=== PATIENT | female | born 1990 ===

== ENCOUNTER 2017-11-04 05:54 | Inpatient (IN) | payer OTHER ==
[~2017-11-04] VITALS: Ht 157.5 cm; Wt 57.6 kg
[2017-11-04] MEDS ORDERED: PRENATAL + DHA1 EAC1 PO (11:16)
[2017-11-07] MEDS ORDERED: CODE1TAB37 PO (09:08)
[2017-11-07] MEDS ORDERED: NAPR500T14 PO (09:08)
== END 2017-11-07 13:27 | disposition home or self-care (01) | DRG 766 ==
LOC: O/R 05:54 → OB/GYN 05:54 → LDR 05:54 → O/R 11:59 → OB/GYN 14:10
PROVIDERS: Obstetrics & Gynecology
PROC: 4A1HXCZ Monitoring of Products of Conception, Cardiac Rate, External Approach (ICD-10-PCS; 2017-11-04)
PROC: 4A033R1 Measurement of Arterial Saturation, Peripheral, Percutaneous Approach (ICD-10-PCS; 2017-11-04)
PROC: 10D00Z1 Extraction of Products of Conception, Low, Open Approach (ICD-10-PCS; principal; 2017-11-04 06:15)
DX: O76 Abnormality in fetal heart rate and rhythm complicating labor and delivery (principal); O69.0XX0 Labor and delivery complicated by prolapse of cord, not applicable or unspecified; Z3A.38 38 weeks gestation of pregnancy; Z37.0 Single live birth

== ENCOUNTER 2023-08-26 08:13 | Outpatient (CLI) | payer OTHER ==
[~2023-08-26 08:13] MED LIST: CODE1TAB37 PO; NAPR500T14 PO; PRENATAL + DHA1 EAC1 PO
== END 2023-08-26 08:14 | disposition home or self-care (01) ==
LOC: PRENATAL 08:13
PROVIDERS: ATTEND Obstetrics & Gynecology Maternal & Fetal Medicine
DX: O35.9XX0 Maternal care for (suspected) fetal abnormality and damage, unspecified, not applicable or unspecified (principal); O35.3XX0 Maternal care for (suspected) damage to fetus from viral disease in mother, not applicable or unspecified; O44.02 Complete placenta previa NOS or without hemorrhage, second trimester; Z3A.19 19 weeks gestation of pregnancy; O99.282 Endocrine, nutritional and metabolic diseases complicating pregnancy, second trimester; O34.219 Maternal care for unspecified type scar from previous cesarean delivery

== ENCOUNTER 2023-11-25 14:02 | Outpatient (CLI) | payer OTHER | END 2023-11-25 14:03 | disposition home or self-care (01) | LOC: PRENATAL 14:02 | PROVIDERS: ATTEND Obstetrics & Gynecology Maternal & Fetal Medicine | DX: O26.849 Uterine size-date discrepancy, unspecified trimester (principal); O36.8199 Decreased fetal movements, unspecified trimester, other fetus; O99.280 Endocrine, nutritional and metabolic diseases complicating pregnancy, unspecified trimester; O34.219 Maternal care for unspecified type scar from previous cesarean delivery; Z3A.32 32 weeks gestation of pregnancy ==

== ENCOUNTER 2024-01-05 13:05 | Inpatient (IN) | payer OTHER ==
[~2024-01-05] VITALS: Ht 157.5 cm; Wt 2.7 kg
[2024-01-05] MEDS ORDERED: SYNTHROID75 MCG PO (13:50)
[2024-01-05 15:19] LABS: URINE APPEARANCE Clear; URINE BILIRRUBIN Negative (NEGATIVE); URINE BLOOD Negative; URINE COLOR Yellow; URINE GLUCOSE Negative (NEGATIVE); URINE KETONE Trace (NEGATIVE); URINE LEUKOCYTE Negative; URINE NITRATE Negative; URINE PROTEIN Negative (NEGATIVE); URINE UROBILINOGEN 0.2 E.U./dl
[2024-01-05 15:19] LABS: HEMATOCRIT 35.5 % (36.0-45.00); MEAN CELL VOLUME 89.4 fL (80.00-100.00); MEAN CORPUSCULAR HEMOGLOBIN 30.3 pg (27.00-32.0); MEAN CORPUSCULAR HGB CONC 33.8 g/dl (32.0-36.0); PLATELET COUNT 230 K/uL (150-450); RED BLOOD COUNT 3.97 M/uL (4.00-6.00); RED CELL DISTRIBUTION WIDTH 14.1 % (11.5-14.5)
[2024-01-05 15:23] LABS: URINE BACTERIA 1916.3 uL (0.0-1933); URINE EPITHELIAL CELLS 46.6 uL (0.0-38.8); URINE RBC 4.7 uL (0.0-20.8); URINE WBC 41.7 uL (0.0-23.2)
[2024-01-05 15:37] LABS: URINE CAST 0.15 uL (0.0-1.40)
[2024-01-05 15:44] LABS: INR 0.94; PARTIAL THROMBOPLASTIN TIME 24.9 SECONDS (22.0-34.0); PROTHROMBIN TIME 10.3 SECONDS (9.0-11.5)
[2024-01-05 15:52] LABS: ALBUMIN 2.8 gm/dL (3.4-5.0); BILIRUBIN TOTAL 0.23 mg/dL (0.3-1.2); CALCIUM 8.8 mg/dL (8.5-10.1); CREATININE SERUM 0.51 mg/dL (0.55-1.02); GFR 139.75; GLOBULINA 4.1 G/DL (2.4-3.5); POTASSIUM 3.5 mEq/L (3.5-5.1); TOTAL PROTEIN 6.9 gm/dL (6.4-8.2)
[2024-01-06 07:36] VITALS: BP 97/66
[2024-01-06] MEDS ORDERED: CEFAZOLIN SODIUM 1,000 MG VIAL IV ONE (13:30)
[2024-01-06] MEDS ORDERED: ERYTHROMYCIN BASE OPHT 1GM EACH TUBE OP ONE (13:30)
[2024-01-06] MEDS ORDERED: OXYTOCIN 10 UNITS/ML VIAL IV ONE (13:30)
[2024-01-06] MEDS ORDERED: MORPHINE SULFATE 4 MG/ML CARTRIDGE IV PRN (14:00)
[2024-01-06] MEDS ORDERED: ONDANSETRON HCL 2 MG/ML VIAL IV PRN (14:00)
[2024-01-06] MEDS ORDERED: OXYTOCIN 1,000 ML IV SCH (14:00)
[2024-01-06] MEDS ORDERED: MORPHINE SULFATE 4 MG/ML VIAL IV ONE ×3 (15:20→19:40)
[2024-01-06] MEDS ORDERED: SIMETHICONE 125 MG CAPSULE PO SCH (18:00)
[2024-01-06 21:20] LABS: HEMATOCRIT 35.3 % (36.0-45.00); HEMOGLOBIN 11.4 g/dL (12.0-15.00); MEAN CELL VOLUME 89.9 fL (80.00-100.00); MEAN CORPUSCULAR HEMOGLOBIN 29.1 pg (27.00-32.0); MEAN CORPUSCULAR HGB CONC 32.3 g/dl (32.0-36.0); PLATELET COUNT 232 K/uL (150-450); RED BLOOD COUNT 3.93 M/uL (4.00-6.00); RED CELL DISTRIBUTION WIDTH 14.1 % (11.5-14.5)
[2024-01-06 21:38] VITALS: BP 101/67
[2024-01-07 01:20] VITALS: BP 101/64
[2024-01-07 06:13] VITALS: BP 100/60
[2024-01-07 08:51] VITALS: BP 90/60
[2024-01-07] MEDS ORDERED: NAPROXEN 500 MG TABLET PO SCH (09:00)
[2024-01-07] MEDS ORDERED: ACETAMINOPHEN WITH CODEINE 1 UDTAB TABLET PO PRN (09:00)
[2024-01-07 16:00] VITALS: BP 90/62
[2024-01-08 00:45] VITALS: BP 112/76
[2024-01-08 08:00] VITALS: BP 95/54
[2024-01-08 20:12] VITALS: BP 86/58
[2024-01-09 00:19] VITALS: BP 91/60
[2024-01-09 08:00] VITALS: BP 92/62
[2024-01-09] MEDS ORDERED: Tylenol #3 PO (10:44)
[2024-01-09] MEDS ORDERED: NAPR500T14 PO (10:44)
== END 2024-01-09 12:31 | disposition home or self-care (01) | DRG 788 ==
LOC: O/R 01-06 07:24 → OB/GYN 01-06 10:45
PROVIDERS: ADMIT Obstetrics & Gynecology; ATTEND Obstetrics & Gynecology
PROC: 4A1HXCZ Monitoring of Products of Conception, Cardiac Rate, External Approach (ICD-10-PCS; 2024-01-06)
PROC: 10D00Z1 Extraction of Products of Conception, Low, Open Approach (ICD-10-PCS; principal; 2024-01-06 10:45)
DX: O41.03X0 Oligohydramnios, third trimester, not applicable or unspecified (principal); O34.211 Maternal care for low transverse scar from previous cesarean delivery; O82 Encounter for cesarean delivery without indication; O76 Abnormality in fetal heart rate and rhythm complicating labor and delivery; Z37.0 Single live birth; Z3A.38 38 weeks gestation of pregnancy; Z20.822 Contact with and (suspected) exposure to COVID-19